=== PATIENT | female | born 1995 | race Caucasian/White ===

== ENCOUNTER 2018-02-17 13:08 | Emergency (ER) | payer OTHER ==
--- NOTE | 2018-02-17 14:53 | EDPHY ---
H & P Time Seen by Provider: 02/17/18 14:38 HPI/ROS: CHIEF COMPLAINT: Headache after head trauma HISTORY OF PRESENT ILLNESS: Happened yesterday during a dance rehearsal, went head versus head unintentionally with another dancer at 5:00 p.m.. She felt dizzy and had some nausea and headache on the left side behind her ear but did not lose consciousness and no seizure activity. Currently as about a 4/10 headache, not better worse with anything. She does feel like she is"floating"and does not feel as sharp as normally. She does have some pressure in her head. No visual symptoms, no neck pain, no weakness or numbness in extremities, no trouble with balance. REVIEW OF SYSTEMS: Eye: no change in vision ENT: no sore throat Cardiac: no chest pain or syncope Pulmonary: no cough or SOB Abdomen: no vomiting, diarrhea, abdominal pain Musculoskeletal: No neck pain, she developed a little bit of aching in her sacral area overnight. Skin: no rash Neuro: HPI Constitutional: no fever : no urinary symptoms A comprehensive 10 point review of systems is otherwise negative aside from elements mentioned in the history of present illness. PAST MEDICAL HISTORY: High cholesterol Social history: Nonsmoker General Appearance: Alert and conversant, cooperative. Eyes: No scleral icterus. Extraocular motion intact, pupils equal reactive. ENT, Mouth: Normal mucous membranes. Normal tympanic membranes bilaterally, no hemotympanum. Respiratory: Normal respiratory effort, breath sounds equal, lungs are clear to auscultation. Cardiovascular: Regular rate and rhythm. Gastrointestinal: Abdomen is soft and non tender. Neurological: Alert, face symmetric, normal motor and sensory in extremities. Normal [id number], normal [id number], fluent speech. Skin: Warm and dry, no rashes. Musculoskeletal: No midline spinal tenderness. Psychiatric: Not agitated. Emergency Department course/MDM: \\ \\patient presents with likely concussion symptoms, she does not have high risk features to suggest intracranial injury, subdural, epidural, skull fracture. Declined pain medication in the emergency department. Concussion referral. Low sacral ache likely unrelated to concussion symptoms. Does not appear to be medically or surgically emergent. Smoking Status: Never smoked Constitutional: Initial Vital Signs Temperature (C) 37.1 C 02/17/18 13:13 Heart Rate 91 02/17/18 13:13 Respiratory Rate 16 02/17/18 13:13 Blood Pressure 117/75 02/17/18 13:13 O2 Sat (%) 98 02/17/18 13:13 O2 Delivery Mode Room Air Allergies/Adverse Reactions: No Known Allergies Allergy (Unverified 02/17/18 13:11) Home Medications: Medication Instructions Recorded Lipitor 02/17/18 MDM/Departure - MDM Differential Diagnosis: Differential diagnosis considered for head injury including but not limited to concussion, skull fracture, intraparenchymal contusion, subarachnoid, subdural and epidural hematoma. - Depart Disposition: Home, Routine, Self-Care Clinical Impression: Concussion Qualifiers: Encounter type: initial encounter Loss of consciousness presence/duration: without LOC Qualified Code(s): S06.0X0A - Concussion without loss of consciousness, initial encounter Condition: Good Instructions: Concussion (ED) Additional Instructions: No contact sports or dance rehearsal until your symptoms have completely resolved. Oral Tylenol or ibuprofen as discussed for headache. Follow-up with referral physician next week if you still have symptoms. Referrals: Joan Arteaga MD [Medical Doctor] - 5-7 days, if not improved
[2018-02-17 15:05] VITALS: BP 116/68
== END 2018-02-17 15:12 | disposition home or self-care (01) ==
DX: S06.0X0A Concussion without loss of consciousness, initial encounter (principal)